=== PATIENT | male | born 1950 | race Caucasian/White ===

== ENCOUNTER 2017-04-05 06:04 | Observation (INO) | payer OTHER ==
[2017-04-05] VITALS (15 sets, daily range): BP systolic 108–136; BP diastolic 72–86; PULSE 81–88; TEMP 36.6–36.8; O2SAT 87–96; Ht 167.6 cm; Wt 74.8 kg
[~2017-04-05] VITALS: Ht 167.6 cm; Wt 74.8 kg
[~2017-04-05 06:04] MED LIST: ACT35 PO; CEFAZOLIN 1000MG/55 ML D5W 55 ML IV SCH; CLR10 PO; CLTP PO; FLVHFA110 INH; GABA-113 PO; GEMF600T3 PO; LACTATED RINGER'S 1000ML 1,000 ML IV SCH; LACTATED RINGER'S 1000ML IV SCH; LISI20TA PO; MOME50SP5; NABU500T3 PO; PARO1TAB27 PO; PARO1TAB29 PO; PRLSR20 PO; SIMV10TA2 PO; [UNRECOGNIZED DRUG - CODE] PO
[2017-04-05] MEDS ORDERED: ALBUT/IPRATROP 3MG/0.5MG NEB 3 ML VIAL INH ONE (07:15)
[2017-04-05] MEDS ORDERED: ONDANSETRON INJ 2 MG/ML 2 ML VIAL IV PRN (07:15)
[2017-04-05] MEDS ORDERED: ATROPINE SULFATE 0.1 MG/ML 5ML SYR IV PRN (07:15)
[2017-04-05] MEDS ORDERED: FENTANYL CITRATE INJ 50 MCG/1 ML 2 ML VIAL IV PRN (07:15)
[2017-04-05] MEDS ORDERED: EpHEDrine SULFATE INJ 50 MG/ML AMP IV PRN (07:15)
[2017-04-05] MEDS ORDERED: CARV12.5 PO (07:17)
[2017-04-05] MEDS ORDERED: ALBU2SYP9 INH (07:21)
[2017-04-05] MEDS ORDERED: LISI40TA PO (07:26)
[2017-04-05] MEDS ORDERED: TAMS0.4C38 PO (07:38)
[2017-04-05] MEDS ORDERED: LNX125 PO (07:38)
[2017-04-05] MEDS ORDERED: FINA5TAB PO (07:38)
[2017-04-05] MEDS ORDERED: COLC0.6T54 PO (07:38)
[2017-04-05] MEDS ORDERED: SPIR25TA PO (07:38)
[2017-04-05] MEDS ORDERED: WARF5TAB90 PO ×2 (07:38)
[2017-04-05] MEDS ORDERED: GLIP-197 PO (07:38)
[2017-04-05] MEDS ORDERED: OXYC-57 PO (07:38)
[2017-04-05] MEDS ORDERED: ATOR-22 PO (07:38)
[2017-04-05] MEDS ORDERED: ALBINS/ INH (07:38)
[2017-04-05] MEDS ORDERED: TORS20TA2 PO (07:38)
[2017-04-05] MEDS ORDERED: PRLSR20 PO ×2 (07:38)
[2017-04-05] MEDS ORDERED: SENN-65 PO (07:38)
[2017-04-05] MEDS ORDERED: NTRGSL/4 UT (07:38)
[2017-04-05 07:40] LABS: INR 2.1 (0.9-1.1); PARTIAL THROMBOPLASTIN RATIO 1.5; PROTHROMBIN TIME (PATIENT) 23.1 SECONDS (9.0-12.0)
[2017-04-05] MEDS ORDERED: PROPOFOL IV EMULSION 10 MG/ML 100 ML VIAL IV ONE (07:52)
--- NOTE | 2017-04-05 07:59 | History & Physical Bridge Note ---
H&P Re-Evaluation Bridge Note: I have examined the patient, reviewed the History & Physical and in the interval since the performance of the History & Physical I have noted the following changes of clinical significance: No changes noted
[2017-04-05] MEDS ORDERED: MIDAZOLAM HCL 1 MG/ML 2ML VIAL ONE (08:00)
[2017-04-05] MEDS ORDERED: BACITRACIN 50000 UNIT VIAL ONE (08:00)
[2017-04-05] MEDS ORDERED: LIDOCAINE HCL 1% 20 ML VIAL ONE (08:00)
[2017-04-05] MEDS ORDERED: BUPIVACAINE 0.5 % 5 MG/1 ML MPF 30ML VIAL ONE (08:00)
[2017-04-05] MEDS ORDERED: KETAMINE HCL INJ 50 MG/ML 10 ML VIAL ONE (08:00)
[2017-04-05] MEDS ORDERED: FENTANYL CITRATE INJ 50 MCG/1 ML 2 ML VIAL ONE (08:00)
[2017-04-05] MEDS ORDERED: PHENYLEPHRINE 100MCG/ML 5ML SYR ONE ×2 (08:48→10:29)
[2017-04-05] MEDS ORDERED: CEFAZOLIN SOD 1 GM VIAL ONE (09:18)
--- NOTE | 2017-04-05 11:03 | [facility] Post Operative Brief Note ---
Immediate Operative Summary Operative Date Apr 05, 2017. Pre-Operative Diagnosis nicm ef 20%, lbbb, chronic systolic hf nyha class ii, persistent atrial flutter Post-Operative Diagnosis same Procedure(s) Performed biventricular rate responsive icd with peripheral venogram Surgeon josé miguel cat Metals Analyst Surgeon(s) none Estimated Blood Loss 150cc Findings see official report Fluids (cc crystalloids) 300cc Specimens none Drains none Anesthesia 2mg versed, 100mcg fentantyl, 600mg propofol, 30mg ketamine Complication(s) None Disposition PCU
--- NOTE | 2017-04-05 11:10 | Discharge Instructions ---
Discharge Instructions Date of Service Apr 05, 2017. Admission Reason for Admission: Non Ischemic Cardiomyopathy Discharge Discharge Diagnosis / Problem: nicm ep 20% Discharge Goals Goal(s): Improve function Activity Recommendations Activity Limitations: as noted below Lifting Limitations: no more than 10 pounds (do not lift the left elbow over the left shoulder for 1 month do not lift more than 10 pounds with the left arm for 2 weeks) Exercise/Sports Limitations: as tolerated May Resume Sexual Activity: after two weeks Shower/Bathe: tomorrow Driving or Machine Use: resume 1 day after discharge . Instructions / Follow-Up Instructions / Follow-Up ACTIVITY RECOMMENDATIONS: * Do not raise affected arm over head for 4 weeks. SPECIAL CARE INSTRUCTIONS: * If bleeding occurs, apply direct pressure to area for 5 minutes. * Call your doctor if you have severe pain, fever, drainage or bleeding at site. * Keep dressing on and dry for 48 hours then remove. * Keep any scheduled doctor's appointment. * Implant Card - hand held device with website information given. SKIN IRRITATION: * You may experience some redness and/or swelling in the area where radiation was administered. If any skin irritation occurs, please contact your family physician. FOLLOW UP VISIT: Keep any scheduled doctor appointments. Current Hospital Diet Patient's current hospital diet: AHA Diet (Heart Healthy), Low Sodium Diet (2gm Na) Discharge Diet Recommended Diet: AHA Diet (Heart Healthy), Low Sodium Diet (2gm Na) Procedures Procedures Performed: biventricular rate responsive icd with peripheral venogram Pending Studies Studies pending at discharge: no Medical Emergencies . Who to Call and When: Medical Emergencies: If at any time you feel your situation is an emergency, please call 911 immediately. . Non-Emergent Contact Non-Emergency issues call your: [facility] . . "Provider Documentation" section prepared by Gema Ji. . VTE Core Measure Inpt VTE Proph given/why not?: Warfarin (Coumadin)
--- NOTE | 2017-04-05 11:13 | Discharge Summary ---
Discharge Summary Date of Service Apr 05, 2017. Discharge Summary Admission Date: 04/05/2017 Discharge Date: Apr 06, 2017 Discharge Disposition: Home Principal Diagnosis: nicm ef 20% Secondary Diagnoses/Problems: lbbb chronic systolic heart failure nyha class iii persistent atrial flutter on coumadin hld dm ckd stage ii copd chronic tobacco use hep c positive Procedures: biventricular rate responsive icd with peripheral venogram Medication Reconciliation Continued Medications: Albuterol Sulf (Ventolin) 2 Mg/5 Ml Syrp 2 PUFF INH Q4 PRN for SOB/Wheezing Albuterol Sulf (Proventil 0.083% 2.5MG/3ML) 2.5 Mg/3 Ml Nebu 2.5 MG INH QID PRN for SOB/Wheezing, EA Atorvastatin (Lipitor) 20 Mg Tab 1 TAB PO DAILY for 30 Days, #30 TAB 5 Refills Carvedilol (Coreg) 12.5 Mg Tab 3 TAB PO BID for 90 Days, #540 TAB 1 Refill Colchicine (Colchicine) 0.6 Mg Tab 0.6 MG PO DAILY, TAB Digoxin (Digoxin) 0.125 Mg Tab 1 TAB PO DAILY Finasteride (Proscar) 5 Mg Tab 1 TAB PO DAILY for 90 Days, #90 TAB 1 Refill Gabapentin (Neurontin) 300 Mg Cap 300 MG PO BID, 0 Refills Glipizide (Glipizide Er) 5 Mg Tab 1 TAB PO DAILY for 30 Days, #30 TAB 5 Refills Lisinopril (Zestril) 40 Mg Tab 40 MG PO, TAB Loratadine (Claritin) 10 Mg Tab 10 MG PO DAILY, 0 Refills Nitroglycerin (Nitrostat) 0.4 Mg Tab 0.4 MG UT PRN, BTL Omeprazole (Prilosec) 20 Mg Capcr 20 MG PO DAILY, CAP Oxycodone/Acetaminophen 5MG/325MG (Percocet 5MG/325MG) Tab 1 TAB PO TID PRN for Pain for 30 Days, #90 TAB PAIN Paroxetine (Paxil) 40 Mg Tab 60 MG PO DAILY, 0 Refills Senna/Docusate Sod (Senokot S) 1 Tab Tab 1 TAB PO PRN for Constipation, TAB Spironolactone (Aldactone) 25 Mg Tab 12.5 MG PO DAILY, TAB Tamsulosin Hcl (Flomax) 0.4 Mg Cap 0.4 MG PO DAILY, CAP Torsemide (Demadex) 20 Mg Tab 3 TABS PO DAILY for 90 Days, TAB 1 Refill Warfarin Sodium (Coumadin) 5 Mg Tab 5 MG PO 4XWK for 90 Days, TAB 1 Refill TAKE 1 TAB ON , TH, SAT , SUN Warfarin Sodium (Coumadin) 5 Mg Tab 7.5 MG PO 3XWK for 90 Days, TAB 1 Refill TAKE 1 1/2 TAB MON, WED, FRI Admission Information Physical Exam (per Admitting): aaox3, NAD Supple No JVD irregular S1/S2 +systolic murmur cta b/l no w/r/r soft nt no edema b/l le no focal deficits skin intact Hospital Course pt admitted for elective biv icd due to nicm, lbbb, chronic systolic hf. He underwent procedure without any complications. He was monitored overnight and discharged home. Total time spent on discharge = This includes examination of the patient, discharge planning, medication reconciliation, and communication with other providers. Discharge Instructions ACTIVITY RECOMMENDATIONS: * Do not raise affected arm over head for 4 weeks. SPECIAL CARE INSTRUCTIONS: * If bleeding occurs, apply direct pressure to area for 5 minutes. * Call your doctor if you have severe pain, fever, drainage or bleeding at site. * Keep dressing on and dry for 48 hours then remove. * Keep any scheduled doctor's appointment. * Implant Card - hand held device with website information given. SKIN IRRITATION: * You may experience some redness and/or swelling in the area where radiation was administered. If any skin irritation occurs, please contact your family physician. FOLLOW UP VISIT: Keep any scheduled doctor appointments.
[2017-04-05] MEDS ORDERED: OXYCODONE/ACETAMINOPHEN 5-325 TAB PO PRN (11:15)
[2017-04-05] MEDS ORDERED: DOCUSATE SODIUM/SENNA 50/8.6MG TAB PO PRN (11:15)
[2017-04-05] MEDS ORDERED: NITROGLYCERIN 0.4 MG SL PER TAB CHARGE UT SCH (11:15)
[2017-04-05] MEDS ORDERED: ALBUTEROL 0.083% NEBU SOLN 3 ML VIAL INH PRN (11:15)
--- NOTE | 2017-04-05 11:47 | Anesthesiology Progress Note ---
Anesthesia Post Op Note Date & Time Apr 05, 2017 at 11:46 Vital Signs Pain Intensity: 0 Vital Signs Past 12 Hours Date Time Temp Pulse Resp B/P (MAP) Pulse Ox O2 Delivery O2 Flow Rate FiO2 04/05/17 11:45 83 16 130/78 (95) 98 Room Air 84 04/05/17 11:30 83 16 114/80 (91) 98 Room Air 84 04/05/17 11:20 83 16 114/78 (90) 98 Room Air 04/05/17 11:20 84 18 123/77 (92) 96 Nasal Cannula 2 04/05/17 11:10 83 16 122/78 (93) 94 Room Air 04/05/17 11:00 80 16 117/73 (88) 95 Mask 4 04/05/17 07:45 85 16 96 Nasal Cannula 2.0 04/05/17 06:35 36.7 84 18 129/78 (95) 95 Room Air Notes Mental Status: alert / awake / arousable, participated in evaluation Pt Amnestic to Procedure: Yes Nausea / Vomiting: adequately controlled Pain: adequately controlled Airway Patency, RR, SpO2: stable & adequate BP & HR: stable & adequate Hydration State: stable & adequate Anesthetic Complications: no major complications apparent
[2017-04-05] MEDS: OXYCODONE/ACETAMINOPHEN 5-325 TAB PO PRN (13:55)
--- NOTE | 2017-04-05 14:34 | OPERATIVE REPORT ---
DATE OF OPERATION: 04/05/2017 PREOPERATIVE DIAGNOSES: Nonischemic cardiomyopathy, left bundle branch block, chronic systolic congestive heart failure, [place] Heart Association class 3, persistent atrial flutter on Coumadin. POSTOPERATIVE DIAGNOSIS: Same. PROCEDURE: Biventricular rate responsive implantable cardiac defibrillator under fluoroscopic guidance along with peripheral venogram. SURGEON: Dr. Gema Ji. GLOBAL RECRUITER: None. ANESTHESIA: Monitored anesthetic care given via anesthesiology. They gave a total of 2 mg of Versed, 100 mcg of fentanyl, 600 mg of propofol and 30 mg of ketamine, IV fluids 300 mL. BLOOD LOSS: 150 mL. CONTRAST: 18 mL. ANTIBIOTICS: 2 grams of Ancef. COMPLICATIONS: None. CONDITION: Stable. URINE OUTPUT: Not applicable. SPECIMENS: None. FINDINGS: See below. DRAINS: None. INDICATIONS: This is a 66-year-old gentleman who has a past medical history for nonischemic cardiomyopathy, ejection fraction 20%, persistent atrial flutter on Coumadin, minimal nonobstructive coronary artery disease by catheterization in July 2016, chronic systolic heart failure, [place] Heart Association class 3, left bundle branch block, diabetes, COPD, chronic kidney disease stage II, chronic tobacco use, hep C. Due to his ischemic cardiomyopathy, heart failure, synchrony on echo and bundle branch he was recommended biventricular implantable cardiac defibrillator. CONSENT: Consent was obtained prior to the patient going into the electrophysiology lab. The patient was informed of the risks, benefits, alternatives to the procedure. Risks include but not limited to sudden cardiac , cardiac arrhythmias, cerebrovascular accident, myocardial infarction, injury to the blood vessels, chamber of the heart, lungs, bleeding and infection. The patient understood these risks and agreed to undergo the procedure as planned. Informed consent was obtained. DESCRIPTION OF THE PROCEDURE: The patient was brought into the electrophysiology lab in a fasting state. He was connected to continuous cardiac monitoring. A timeout was performed to ensure patient's identity and procedure correctly. The patient received prophylactic antibiotics prior to incision. He was prepped and draped over the left infraclavicular space in normal surgical standard fashion. [place] precautions were maintained throughout the procedure. Monitored anesthetic care was given throughout the procedure for patient's comfort level via anesthesiology supervision. Ten mL of 1% lidocaine, bupivacaine mixture were given in the left deltopectoral groove. Incision was made in left deltopectoral groove. Blunt dissection was performed down to identify the cephalic vein. The cephalic vein was isolated using 0 silk ties. Then a peripheral venogram using 10 mL of IV contrast diluted in 10 mL of saline followed by 20 mL flush was used to identify the axillary vein. Axillary venous access was obtained with an axillary stick without any problems. The guidewire was inserted without any problems. Then I went back to the cephalic vein and I nicked it with an 11 blade and a guidewire was inserted without any resistance. An 8-Somali sheath was inserted over the guidewire and then the dilator was removed and a second guidewire was inserted through the 8-Somali sheath to allow for retained venous access. The sheath was removed and a 9.5-Somali sheath was inserted over the guidewire without any resistance. The guidewire and dilator were removed. The right ventricular defibrillator lead was then advanced into the right ventricle and positioned into the right ventricular apex under fluoroscopic guidance. There was adequate pacing and sensing thresholds and no diaphragmatic stimulation with high output pacing. The 9-1/2 Somali sheath was peeled away and the lead was fixated to pectoralis muscle using 0 silk suture. An 8-Somali sheath was inserted over the retained guidewire through the cephalic vein. There was some resistance so then I used a coated 8 Somali sheath that was a little bit slippier and allowed for easier glide through. The dilator and guidewire were removed and the right atrial lead was advanced into the right atrium and positioned into the right atrial appendage under fluoroscopic guidance. There was adequate sensing of the flutter waves and impedance. There was no testing of thresholds since the patient was in flutter. The sheath was peeled away and lead was fixated to the pectoralis muscle using 0 silk suture. A 9.5-Somali sheath was then inserted over the guidewire through the axillary vein in stick. The guidewire and dilator were removed and an MPX Medtronic outer sheath Attain Command coronary sinus outer sheath was advanced into the right atrium under fluoroscopic guidance over a guidewire. The guidewire and dilator were removed. Then diagnostic EP Decapolar catheter was used to cannulate the coronary sinus. The MPX outer sheath was then advanced over the diagnostic EP catheter into the coronary sinus. Then a balloon was inserted through the Command to do a venogram of the coronary sinus. There were 2 ideal branches, the branch that was a little higher up and went a little bit more lateral was easily cannulated with a Whisper wire. The Attain Command MPX was then advanced a little bit over the Whisper wire up to the ostium of this branch. Then the pacing lead was tracked over the Whisper wire under fluoroscopic guidance out into the branch. There was adequate thresholds and impedance. There was no diaphragmatic pacing at 5 volts, but there was at 10 volts. The Whisper wire was then removed and a stylet was placed through the lead for more support. The MPX Attain Command sheath was pulled back out of the coronary sinus, then was split under fluoroscopic guidance. The 9.5-Somali outer short sheath was then peeled and split. The lead was fixated to the pectoralis muscle using 0 silk suture. There was some backbleeding from the cephalic venous site so I did use a pursestring around the venous site using a 2-[address] needle. Then a defibrillator pocket was created using blunt dissection over the pectoralis muscle within the pectoralis fascia. The pocket was flushed with copious amounts of bacitracin saline wash and inspected for hemostasis. The defibrillator generator was then attached to the leads making sure that the pins were in appropriate position, passed the set screws and the set screws were all tightened. The defibrillator was then placed in the pocket, making sure that the leads were lying flat beneath the device. Kaylee stat was placed in the pocket as patient is on Coumadin. The incision was closed in a 3-layer fashion using a 2-0 Vicryl interrupted suture followed by 3-0 Vicryl interrupted suture followed by a 4-0 Monocryl running stitch and Dermabond was applied followed then by a pressure dressing. EQUIPMENT: 1. Defibrillator is a Medtronic Hublishedia MRI quad CRTD Surescan GTTQ9II, serial #[id number]. 2. Right atrial lead Medtronic 5076-52 cm, serial #[id number]. 3. Right ventricular lead Medtronic 6935M-62 cm, serial #[id number]. 4. Left ventricular lead, Medtronic 4598-88 cm, serial #[id number]. INTRAOPERATIVE TESTIN. Right atrial lead flutter waves are 1.4 millivolts, impedance 450 ohms, no threshold testing as patient was in flutter. 2. Right ventricular lead: R-wave 4.9 millivolts, impedance 480 ohms, threshold 0.4 volts at 0.6 milliamps. 3. Left ventricular lead programmed bipolar LV 2-3, impedance 459 ohms, threshold 0.8 volts at 1.8 milliamps. FINAL PARAMETERS THROUGH THE DEVICE: 1. Right atrial lead flutter waves 1.6 millivolts, impedance 454 ohms, no threshold testing as patient was in atrial flutter. 2. Right ventricular lead: R-wave 6.8 millivolts, impedance 437 ohms, threshold 0.5 volts at 0.4 milliseconds. 3. Left ventricular lead programmed bipolar LV2-LV3, threshold was 1 volt at 0.4 milliseconds, impedance 460 ohms. FINAL PARAMETERS: 1. DDDR 70/130. Right atrial and right amplitude is 3.5 volts, pulse width 0.4 milliseconds, sensitivity 0.15 millivolts. 2. Right ventricular amplitude 3.5 volts, pulse width 0.4 milliseconds, sensitivity 0.3 millivolts. 3. Left ventricular amplitude 4 volts, pulse width 0.4 milliseconds. 4. VF zone 200 beats per minute with 30/40 detection intervals and a VT zone of 167 beats per minute with 20 detection intervals. IMPRESSION: Successful implantation of biventricular implantable cardiac defibrillator under fluoroscopic guidance along with peripheral venogram due to nonischemic cardiomyopathy, chronic systolic heart failure, and left bundle branch block. PLAN: Monitor patient overnight, 12-lead ECG, chest x-ray. He is not allowed to lift the left elbow over the left shoulder for 1 month. He cannot lift more than 10 pounds with the left arm for 2 weeks. We will keep the pressure dressing on probably for 2 days. He can continue his other home medications with new addition to his Coumadin. He probably will not get the maximum effective of his biventricular device until after flutter ablation which I plan on hopefully doing about a month from now. He will follow up in our [place] office in 7-10 days for device and wound check. I will see him in about a month's time to arrange for flutter ablation. I attest to the content of the Intraoperative Record and any orders documented therein. Any exception s are noted below.
[2017-04-05] MEDS ORDERED: IV FLUIDS COMPLETED PRN (14:45)
[2017-04-05] MEDS ORDERED: WARFARIN SOD 7.5 MG TAB PO SCH (16:00)
[2017-04-05] MEDS: CARVEDILOL 12.5 MG TAB PO SCH (20:13)
[2017-04-05] MEDS: GABAPENTIN 300 MG CAP PO SCH (20:14)
[2017-04-06] VITALS (7 sets, daily range): BP systolic 121–153; BP diastolic 76–88; PULSE 85–86; TEMP 36.3–36.6; O2SAT 91–97
[2017-04-06] MEDS: OXYCODONE/ACETAMINOPHEN 5-325 TAB PO PRN ×2 (05:15→10:56)
--- NOTE | 2017-04-06 08:07 | DIAGNOSTIC IMAGING REPORT ---
CHEST 2 VIEWS ROUTINE CLINICAL HISTORY: 66 years-old Male presenting with EXACT TIME ORDERED Evaluate for pneumothorax and lead placement. TECHNIQUE: PA and lateral views of the chest were obtained. COMPARISON: 11/09/2006. FINDINGS: Left implanted cardiac defibrillator with leads to the right atrium, right ventricular apex, and coronary sinus noted. Cardiac mediastinal silhouette normal. Bibasilar reticular and hazy opacities. Heterogeneous radiolucency in the upper lobes could suggest underlying emphysema. Small right pleural effusion. No pneumothorax. Multiple deformities of ribs consistent with old rib fractures. Left shoulder arthroplasty. Upper abdomen normal. IMPRESSION: 1. Left implanted cardiac defibrillator placement without evidence of pneumothorax. 2. Mild pulmonary edema suspected. 3. Small right pleural effusion. 4. Suspected underlying emphysema. Electronically signed by: Aime Taylor M.D. 04/06/2017 8:06 AM Dictated Date/Time: 04/06/2017 8:04 AM
--- NOTE | 2017-04-06 08:20 | Cardiology Follow-Up ---
Subjective Subjective Date of Service: Apr 06, 2017. Pt evaluation today including: conversation w/ patient, physical exam, lab review, review of studies Pain: minimal Review of Systems Constitutional: No fatigue Respiratory: + shortness of breath Cardiac: No chest pain, No edema, No palpitations Abdomen: No nausea, No diarrhea Objective Vital Signs Last Vital Signs Documentation Date Time Temp Pulse Resp B/P (MAP) Pulse Ox O2 Delivery O2 Flow Rate FiO2 04/06/17 07:42 36.6 85 20 153/88 (109) 96 2.0 04/06/17 04:00 Nasal Cannula Physical Exam: General Appearance: WD/WN, no apparent distress Eyes: bilateral eyes PERRL, bilateral eyes EOMI Neck: supple Respiratory/Chest: lungs clear, normal breath sounds Cardiovascular: regular rate, rhythm, no edema, no JVD, no murmur Abdomen: soft Extremities: no pedal edema Neurologic/Psychiatric: alert, oriented x 3 Skin: warm/dry (left pectoral incision intact no hematom and mild ecchymosis), no rash Assessment and Plan Impression: 1. ICM EF 20% s/p BiV ICD 04/05/2017 2. LBBB 3. Chronic systolic HF, NYHA Class III 4. persistent atrial flutter on coumadin 5. CAD minimal disease by cath 07/2016 6. HLD 7. CKD stage II 8. Back pain Plan: -Ok for discharge home today -Continue home medications -Pt is on chronic pain program through [facility] however he is not due for refill until tomorrow; so I will give him 5 pills for today given the recent surgery -Pt not allowed to lift his left elbow over the left shoulder for 1 month and not to lift more than 10 pounds for 2 weeks with the left arm -Can shower tomorrow -Device and wound check next week -F/u with me in 1 month to begin arranging for flutter ablation Discharge planning: home Medications: Medications Administered Medications (Trade) Dose Ordered Sig/Leonardo Route Start Time Stop Time Status Last Admin Dose Admin Cefazolin Sodium 55 ml @ 100 mls/hr PREOP IV 04/05/17 06:00 04/05/17 18:00 DC 04/05/17 08:10 100 MLS/HR Lactated Ringer's 1,000 ml @ 15 mls/hr Q24H IV 04/05/17 06:00 04/05/17 15:08 DC 04/05/17 07:11 15 MLS/HR Albuterol/ Ipratropium (Duoneb) 3 ml NOW ONCE INH 04/05/17 07:15 04/05/17 07:25 DC 04/05/17 07:45 3 ML Oxycodone/ Acetaminophen (Percocet 5-325mg Tab) 1 tab for pain scale 4-6 2 t... Q6H PRN PO 04/05/17 11:15 04/19/17 11:14 04/06/17 05:15 1 TAB Carvedilol (Coreg Tab) 37.5 mg BID PO 04/05/17 21:00 05/05/17 20:59 04/05/17 20:13 37.5 MG Gabapentin (Neurontin Cap) 300 mg BID PO 04/05/17 21:00 05/05/17 20:59 04/05/17 20:14 300 MG Lab Results: Telemetry: BiV paced underlying flutter ECG: BiV paced underlying flutter ICD Interrogation: 88% biv paced overnight RA: flutter waves 1.8mV; 380 ohms RV: 7.6mV; 437ohms; 0.25V@0.4ms RV 45 ohms coil: LV: 494ohms; 1.0V@0.4ms CXR: No PTX leads in position
[2017-04-06 08:26] LABS: INR 1.4 (0.9-1.1); PROTHROMBIN TIME (PATIENT) 14.8 SECONDS (9.0-12.0)
[2017-04-06] MEDS: GABAPENTIN 300 MG CAP PO SCH (08:53)
[2017-04-06] MEDS: CARVEDILOL 12.5 MG TAB PO SCH (08:53)
[2017-04-06] MEDS ORDERED: PAROXETINE 20 MG TAB PO SCH (09:00)
[2017-04-06] MEDS ORDERED: LORATADINE 10 MG TAB PO SCH (09:00)
[2017-04-06] MEDS ORDERED: ATORVASTATIN 20 MG TAB PO SCH (09:00)
[2017-04-06] MEDS ORDERED: SPIRONOLACTONE 25 MG TAB PO SCH (09:00)
[2017-04-06] MEDS ORDERED: PANTOprazole SOD 40 MG TAB PO SCH (09:00)
[2017-04-06] MEDS ORDERED: FINASTERIDE 5 MG TAB PO SCH (09:00)
[2017-04-06] MEDS ORDERED: LISINOPRIL 40 MG TAB PO SCH (09:00)
[2017-04-06] MEDS ORDERED: TORSEMIDE 20 MG TAB PO SCH (09:00)
[2017-04-06] MEDS ORDERED: COLCHICINE 0.6 MG TAB PO SCH (09:00)
[2017-04-06] MEDS ORDERED: TAMSULOSIN HCL 0.4 MG CAP PO SCH (09:00)
--- NOTE | 2017-04-06 11:15 | Anesthesiology Progress Note ---
Anesthesia Post Op Note Date & Time Apr 06, 2017 at 11:15 Vital Signs Pain Intensity: 0.0 Vital Signs Past 12 Hours Date Time Temp Pulse Resp B/P (MAP) Pulse Ox O2 Delivery O2 Flow Rate FiO2 04/06/17 10:20 36.6 85 20 96 Nasal Cannula 04/06/17 08:00 96 Nasal Cannula 2.0 04/06/17 07:42 36.6 85 20 153/88 (109) 96 2.0 04/06/17 04:03 36.4 86 16 149/85 (106) 96 2.0 04/06/17 04:00 95 Nasal Cannula 2.0 04/06/17 00:59 95 Nasal Cannula 2.0 04/06/17 00:01 36.3 85 22 123/76 (92) 97 Nasal Cannula 2.0 Notes Mental Status: alert / awake / arousable, participated in evaluation Pt Amnestic to Procedure: Yes Nausea / Vomiting: adequately controlled Pain: adequately controlled Airway Patency, RR, SpO2: stable & adequate BP & HR: stable & adequate Hydration State: stable & adequate Anesthetic Complications: no major complications apparent
[2017-04-06] MEDS ORDERED: DIGOXIN 0.125 MG TAB PO SCH (16:00)
[2017-04-27] MEDS ORDERED: NRN800 PO (14:23)
[2017-04-27] MEDS ORDERED: PARO30TA3 PO (14:23)
[2017-04-27] MEDS ORDERED: AMOX875T3 PO (14:23)
== END 2017-04-06 11:37 | disposition home or self-care (01) ==
LOC: C.ACU 06:04 → C.2T 11:06 → ENRESERV 13:22
PROVIDERS: ADMIT Internal Medicine; ATTEND Internal Medicine
DX: I42.9 Cardiomyopathy, unspecified (principal); I48.92 Unspecified atrial flutter; I25.10 Atherosclerotic heart disease of native coronary artery without angina pectoris; I50.22 Chronic systolic (congestive) heart failure; E11.9 Type 2 diabetes mellitus without complications; I44.7 Left bundle-branch block, unspecified; N18.2 Chronic kidney disease, stage 2 (mild); J44.9 Chronic obstructive pulmonary disease, unspecified; J45.909 Unspecified asthma, uncomplicated; F41.1 Generalized anxiety disorder; F17.200 Nicotine dependence, unspecified, uncomplicated; K21.9 Gastro-esophageal reflux disease without esophagitis; C90.00 Multiple myeloma not having achieved remission; I13.0 Hypertensive heart and chronic kidney disease with heart failure and stage 1 through stage 4 chronic kidney disease, or unspecified chronic kidney disease; Z79.01 Long term (current) use of anticoagulants; Z79.899 Other long term (current) drug therapy; Z83.3 Family history of diabetes mellitus; Z82.49 Family history of ischemic heart disease and other diseases of the circulatory system

== ENCOUNTER 2017-05-10 06:24 | Observation (INO) | payer OTHER ==
[2017-04-27 14:05] VITALS: BMI 26.0
[~2017-05-10] VITALS: Ht 167.6 cm; Wt 71.1 kg
[2017-05-10] VITALS (8 sets, daily range): BP systolic 108–134; BP diastolic 71–87; PULSE 72–88; TEMP 36.4–36.5; O2SAT 91–96; Ht 167.6 cm; Wt 71.1 kg
[~2017-05-10 06:24] MED LIST changes: -ACT35 PO; +ALBINS/ INH; +ALBU2SYP9 INH; +AMOX875T3 PO; +ATOR-22 PO; +CARV12.5 PO; -CEFAZOLIN 1000MG/55 ML D5W 55 ML IV SCH; -CLTP PO; +COLC0.6T54 PO; +FINA5TAB PO; -FLVHFA110 INH; -GABA-113 PO; -GEMF600T3 PO; +GLIP-197 PO; -LACTATED RINGER'S 1000ML 1,000 ML IV SCH; -LACTATED RINGER'S 1000ML IV SCH; -LISI20TA PO; +LISI40TA PO; +LNX125 PO; -MOME50SP5; -NABU500T3 PO; +NRN800 PO; +NTRGSL/4 UT; +OXYC-57 PO; -PARO1TAB27 PO; -PARO1TAB29 PO; +PARO30TA3 PO; +PROPOFOL IV EMULSION 10 MG/ML 100 ML VIAL IV ONE; +SENN-65 PO; -SIMV10TA2 PO; +SPIR25TA PO; +TAMS0.4C38 PO; +TORS20TA2 PO; +WARF5TAB90 PO; -[UNRECOGNIZED DRUG - CODE] PO
[2017-05-10 07:28] LABS: INR 1.9 (0.9-1.1); PARTIAL THROMBOPLASTIN RATIO 1.5
[2017-05-10] MEDS ORDERED: MIDAZOLAM HCL 1 MG/ML 2ML VIAL ONE (07:51)
[2017-05-10] MEDS ORDERED: FENTANYL CITRATE INJ 50 MCG/1 ML 2 ML VIAL ONE (07:51)
[2017-05-10] MEDS ORDERED: EpHEDrine SULFATE 50MG/5ML SYR ONE (07:51)
[2017-05-10] MEDS ORDERED: PHENYLEPHRINE 100MCG/ML 5ML SYR ONE (07:51)
[2017-05-10] MEDS ORDERED: LIDOCAINE HCL 2% 2 ML VIAL (20MG/ML) ONE (07:51)
[2017-05-10] MEDS ORDERED: PROPOFOL IV EMULSION 10 MG/ML 20 ML VIAL IV ONE (07:51)
[2017-05-10] MEDS ORDERED: ONDANSETRON INJ 2 MG/ML 2 ML VIAL IV PRN (08:30)
[2017-05-10] MEDS ORDERED: FENTANYL CITRATE INJ 50 MCG/1 ML 2 ML VIAL IV PRN (08:30)
[2017-05-10] MEDS ORDERED: ATROPINE SULFATE 0.1 MG/ML 5ML SYR IV PRN (08:30)
[2017-05-10] MEDS ORDERED: HEPARIN SOD (PORCINE) 1000 UNIT/ML 10 ML VIAL ONE (08:48)
[2017-05-10] MEDS ORDERED: PHENYLEPHRINE HCL INJ 10 MG/ML VIAL ONE (09:19)
[2017-05-10] MEDS ORDERED: EpHEDrine SULFATE INJ 50 MG/ML AMP ONE ×2 (09:49→10:17)
--- NOTE | 2017-05-10 11:12 | [facility] Post Operative Brief Note ---
Immediate Operative Summary Operative Date May 10, 2017. Pre-Operative Diagnosis persistent atrial flutter Post-Operative Diagnosis same, bidirectional block accross the CTI Procedure(s) Performed EPS. 3d mapping activation mapping of RA flutter, radiofrequency ablation of cavo-tricuspid isthmus Surgeon josé miguel cat Embedded Systems Software Engineer Surgeon(s) none Estimated Blood Loss <5cc Findings see official report Fluids (cc crystalloids) 900cc Specimens none Drains none Anesthesia 4mg versed, 100mcg fentatnyl, 800mg propofol Complication(s) None Disposition PCU
--- NOTE | 2017-05-10 11:14 | Discharge Instructions ---
Discharge Instructions Date of Service May 10, 2017. Admission Reason for Admission: A-Flutter Discharge Discharge Diagnosis / Problem: persistent atrial flutter Discharge Goals Goal(s): Improve function Activity Recommendations Activity Limitations: as noted below Lifting Limitations: no more than 10 pounds (no heavy lifting or squatting for 1 week) Shower/Bathe: tomorrow Driving or Machine Use: resume 1 day after discharge . Instructions / Follow-Up Instructions / Follow-Up ACTIVITY RECOMMENDATIONS: It is common to feel weak and fatigue for a few days. * Do not drive or operate any motorized equipment for the next 1 day. * Limit stair usage (2 or 3 trips a day only) for the next 7 days. * Do not lift anything heavier than 10 pounds for the next 7 days. * Do not engage in vigorous exercise or any sports for the next five days. * You may shower the day after your procedure, but do not immerse the area for three days. Cleanse the site gently with soap and water. SPECIAL CARE INSTRUCTIONS: * You may replace the pressure dressing or band-aid the morning after the procedure. * After your procedure, it is normal to have a small bruise or small lump at the site. Examine your site daily for any change in the bruise or lump, redness, swelling, drainage or numbness. Notify your doctor if any change. BLEEDING: * If there is a small amount of bleeding at the site, lie down and apply firm pressure with a clean cloth for ten minutes. When the bleeding stops, lie quietly keeping the procedure limb straight for six hours. Notify your doctor as soon as possible. * If the bleeding does not stop after ten minutes or if there is a large amount of bleeding or spurting, call 911 immediately. Continue to lie down and hold firm pressure until help arrives. SKIN IRRITATION: * You may experience some redness and/or swelling in the area where radiation was administered. If any skin irritation occurs, please contact your family physician. FOLLOW UP VISIT: Keep any scheduled doctor appointments. Current Hospital Diet Patient's current hospital diet: AHA Diet (Heart Healthy), Low Sodium Diet (2gm Na), Diabetes Type 2 Diet Discharge Diet Recommended Diet: AHA Diet (Heart Healthy), Low Sodium Diet (2gm Na), Diabetes Type 2 Diet Procedures Procedures Performed: EPS. 3d mapping activation mapping of RA flutter, radiofrequency ablation of cavo-tricuspid isthmus Pending Studies Studies pending at discharge: no Medical Emergencies . Who to Call and When: Medical Emergencies: If at any time you feel your situation is an emergency, please call 911 immediately. . Non-Emergent Contact Non-Emergency issues call your: Completion Manager . . "Provider Documentation" section prepared by Gema Ji. . VTE Core Measure Inpt VTE Proph given/why not?: Warfarin (Coumadin)
[2017-05-10] MEDS ORDERED: ALBUTEROL 0.083% NEBU SOLN 3 ML VIAL INH PRN (11:15)
[2017-05-10] MEDS ORDERED: LORATADINE 10 MG TAB PO PRN (11:15)
[2017-05-10] MEDS ORDERED: NITROGLYCERIN 0.4 MG SL PER TAB CHARGE UT SCH (11:15)
[2017-05-10] MEDS ORDERED: DOCUSATE SODIUM/SENNA 50/8.6MG TAB PO PRN (11:15)
[2017-05-10] MEDS ORDERED: ACETAMINOPHEN 325 MG TAB PO PRN (11:15)
--- NOTE | 2017-05-10 11:17 | Discharge Summary ---
Discharge Summary Date of Service May 10, 2017. Discharge Summary Admission Date: 05/10/2017 Discharge Date: May 11, 2017 Discharge Disposition: Home Principal Diagnosis: persistent atrial flutter s/p ablation Secondary Diagnoses/Problems: nicm EF 20% h/o BiV ICD 03/2017 CAD mild non-obstructive disease by cath in 07/2016 HTN Chronic systolic HF, NYHA Class III DM COPD Procedures: Atrial flutter radiofrequency ablation of cavo-tricuspid isthmus, 3d activation mapping of right atrial flutter, EPS, BiV ICD interrogation and reprogramming Medication Reconciliation Continued Medications: Albuterol Sulf (Ventolin) 2 Mg/5 Ml Syrp 2 PUFF INH Q4 PRN for SOB/Wheezing Albuterol Sulf (Proventil 0.083% 2.5MG/3ML) 2.5 Mg/3 Ml Nebu 2.5 MG INH QID PRN for SOB/Wheezing, EA Atorvastatin (Lipitor) 20 Mg Tab 20 MG PO QAM Carvedilol (Coreg) 12.5 Mg Tab 3 TAB PO BID for 90 Days Colchicine (Colchicine) 0.6 Mg Tab 0.6 MG PO QAM, TAB Digoxin (Digoxin) 0.125 Mg Tab 1 TAB PO QPM Finasteride (Proscar) 5 Mg Tab 5 MG PO QAM Gabapentin (Gabapentin) 800 Mg Tab 800 MG PO TID Glipizide (Glipizide Er) 5 Mg Tab 5 MG PO QPM Lisinopril (Zestril) 40 Mg Tab 40 MG PO QAM, TAB Loratadine (Claritin) 10 Mg Tab 10 MG PO DAILY PRN for Seasonal Allergies, 0 Refills Nitroglycerin (Nitrostat) 0.4 Mg Tab 0.4 MG UT PRN, BTL Omeprazole (Prilosec) 20 Mg Capcr 20 MG PO QPM, CAP Oxycodone/Acetaminophen 5MG/325MG (Percocet 5MG/325MG) Tab 1 TAB PO TID PRN for Pain for 30 Days, #90 TAB PAIN Paroxetine HCl (Paroxetine) 30 Mg Tab 60 MG PO QAM Senna/Docusate Sod (Senokot S) 1 Tab Tab 1 TAB PO PRN for Constipation, TAB Spironolactone (Aldactone) 25 Mg Tab 12.5 MG PO QAM, TAB Tamsulosin Hcl (Flomax) 0.4 Mg Cap 0.4 MG PO QAM, CAP Torsemide (Demadex) 20 Mg Tab 3 TABS PO QAM Warfarin Sodium (Coumadin) 5 Mg Tab 5 MG PO DAILY Admission Information Physical Exam (per Admitting): aaox3, NAD Supple, No JVD Irregular S1/S2, no murmur CTA b/l No w/r/r Soft NT/ND No edema b/l LE No focal deficits Skin intact Hospital Course Pt was admitted for elective atrial flutter ablation. He underwent procedure without any complications. Monitored overnight and discharged home following morning in stable condition Total time spent on discharge = 30 minutes This includes examination of the patient, discharge planning, medication reconciliation, and communication with other providers. Discharge Instructions ACTIVITY RECOMMENDATIONS: It is common to feel weak and fatigue for a few days. * Do not drive or operate any motorized equipment for the next 1 day * Limit stair usage (2 or 3 trips a day only) for the next 7 days. * Do not lift anything heavier than 10 pounds for the next 7 days. * Do not engage in vigorous exercise or any sports for the next five days. * You may shower the day after your procedure, but do not immerse the area for three days. Cleanse the site gently with soap and water. SPECIAL CARE INSTRUCTIONS: * You may replace the pressure dressing or band-aid the morning after the procedure. * After your procedure, it is normal to have a small bruise or small lump at the site. Examine your site daily for any change in the bruise or lump, redness, swelling, drainage or numbness. Notify your doctor if any change. BLEEDING: * If there is a small amount of bleeding at the site, lie down and apply firm pressure with a clean cloth for ten minutes. When the bleeding stops, lie quietly keeping the procedure limb straight for six hours. Notify your doctor as soon as possible. * If the bleeding does not stop after ten minutes or if there is a large amount of bleeding or spurting, call 911 immediately. Continue to lie down and hold firm pressure until help arrives. SKIN IRRITATION: * You may experience some redness and/or swelling in the area where radiation was administered. If any skin irritation occurs, please contact your family physician. FOLLOW UP VISIT: Keep any scheduled doctor appointments.
[2017-05-10] MEDS ORDERED: IV FLUIDS COMPLETED PRN (12:45)
[2017-05-10] MEDS ORDERED: NURSING VERBAL MED ORDER ONE (13:00)
--- NOTE | 2017-05-10 13:11 | OPERATIVE REPORT ---
DATE OF OPERATION: 05/10/2017 PREOPERATIVE DIAGNOSIS: Persistent atrial flutter. POSTOPERATIVE DIAGNOSIS: Same; bidirectional caval block across the cavotricuspid isthmus. PROCEDURE PERFORMED: Electrophysiology study, radiofrequency ablation of the cavotricuspid isthmus for right atrial flutter, 3D activation mapping of the right atrial flutter, biventricular implantable cardiac defibrillator interrogation inch reprogramming. SURGEON: Gema Ji DO NEEDLE PUNCH MACHINE OPERATOR: None. ANESTHESIA: Monitored anesthetic care administered via anesthesiology, total of 4 mg of Versed, 100 mcg of fentanyl and 800 mg of Propofol. IV FLUIDS: 900 mL. BLOOD LOSS: Less than 5 mL. COMPLICATIONS: None. CONDITION: Stable. URINE OUTPUT: Not applicable. SPECIMENS: None. FINDINGS: See below. DRAINS: None. INDICATIONS FOR PROCEDURE: This is a 66-year-old gentleman who has a past medical history of nonischemic cardiomyopathy, ejection fraction 20%. He underwent a biventricular ICD in March 2017, persistent atrial flutter, on Coumadin; coronary artery disease, mild nonobstructive disease by cath in July 2016, hypertension, chronic systolic heart failure, [place] Heart Association class 3, diabetes, COPD, hepatitis B. Due to the persistent atrial flutter, he was recommended flutter ablation. CONSENT: Consent was obtained prior to the patient going into the electrophysiology lab. The patient was informed of risks, benefits and alternatives to the procedure. Risks include but not limited to sudden cardiac ; cardiac arrhythmias; cerebrovascular accident; myocardial infarction; injury to the blood vessels, chamber of the heart with the creek electrical system where he would be dependent on his biventricular ICD lead dislodgement, bleeding and infection. The patient understood these risks and agreed to the procedure as planned. Informed consent was obtained. DESCRIPTION OF THE PROCEDURE: The patient was brought into the electrophysiology lab in a fasting state. He was connected to continuous recovery assistant. A timeout was performed to ensure patient's identity and procedure correctly. The patient was prepped and draped over the bilateral groins in normal surgical standard fashion. Monitored conscious sedation was given throughout the procedure for patient's comfort level. Ingomar precautions were maintained throughout the procedure. Monitored anesthetic care was given throughout the procedure by anesthesiology under their supervision. A 10 mL of 1% lidocaine were given in the bilateral groins for local anesthesia. Using the modified Seldinger technique under ultrasound guidance using a micropuncture kit, venous access was obtained in the following manner. Left femoral vein ultimately had 6-Trinidadian sheath followed by a Dewayne quadripolar catheter positioned into the right ventricular apex. The 7-Trinidadian sheath followed by a 20 pole Halo catheter positioned around the right atrium. The right femoral groins initially had a 6-Trinidadian sheath, which then swapped out for an SRO sheath followed by a ThermoCool DF catheter 4 mm [employer]ense ablation catheter. The patient was in atrial flutter at the beginning of the case, tachycardia cycle length was 256 milliseconds. We 3D activation mapping of the atrial flutter confirming that it was right atrial and involving the cavotricuspid isthmus. With the ablation catheter placed on the CTI and pacing and entraining the flutter, the PPI interval was 282, PPI minus tachycardia cycle length was 26 milliseconds confirming that the CTI was part of the flutter cycle circuit. We then set up to do a cavotricuspid isthmus ablation. We passed a catheter from the tricuspid valve into the cavotricuspid isthmus region and started giving series of radiofrequency gonzalez about a minute in duration and longer than a minute in duration at 40 storey, the patient did have some vagal activities, so we did lower it down to 30 storey. There was a little bit of the ridge. We dragged it down to the IVC giving radiofrequency gonzalez. At one point, the patient did convert out of the atrial flutter to a junctional rhythm where he had some atrial standstill for some time. We were biventricular pacing and eventually the atrium did come back. With Halo distal on the lateral portion line and the ablation catheter on the septal portion line pacing lateral to septal, the measurement was 90 milliseconds showing that we still did not have block. We continued to do more radiofrequency ablations while in sinus rhythm where I focused more in that area where there was a ridge. We then checked again and we had bidirectional block, so we started our post-ablation waiting period and electrophysiology studies as follows: IA interval 224 milliseconds. QRS 194 milliseconds, QT 566 milliseconds, sinus cycle length 754 milliseconds, AH 148 milliseconds, HV 66 milliseconds. Of note, during our monitor period, I placed the ablation catheter into the high right ventricular apex and I placed a Dewayne catheter over the His bundle region to get these signals. The AV Wenckebach was 600 milliseconds, the AV node ERP was 800/480 and 700/420. Atrial ERP was 800/270 and 700/240. Right ventricular ERP was 600/384 and 100/290. The septum with the ablation catheter positioned septal to the line, the pacing septal measuring the Halo distal lateral to the line was 150 milliseconds and pacing lateral to Halo distal to the ablation which is septal measured 146 milliseconds and this was 30 minutes post-ablation, we deemed that we still had bidirectional block and ____. All the catheters were then pulled from the heart under fluoroscopic guidance and the picture was used to confirm that the biventricular pacing leads were still in the same place. The sheaths were pulled and manual compression was held to establish hemostasis. PRE-ABLATION BIVENTRICULAR DEVICE INTERROGATION: 1. Right atrial flutter waves 1.8 millivolts, impedance 437 ohms, no threshold testing as patient was in flutter. 2. Right ventricular: R-wave 9.9 millivolts, impedance 399 ohms, threshold 0.75 volts at 0.4 milliseconds. 3. Left ventricle: Impedance 551 ohms, threshold 1 volt at 0.4 milliseconds. POST-ABLATION BIVENTRICULAR ICD INTERROGATION AND REPROGRAMMIN. Right atrial: P-wave waves 1.8 millivolts, impedance 437 ohms, threshold 0.75 volts at 0.4 milliseconds. 2. Right ventricular R-wave 9.9 millivolts, impedance 437 ohms, threshold 0.75 volts at 0.4 milliseconds. 3. Left ventricular impedance 513 ohms, threshold 0.5 volts at 0.4 milliseconds. 4. The RV coil was 58 ohms. 5. The device was reprogrammed to DDD with a base rate of 70. IMPRESSION: 1. Successful cavotricuspid isthmus radiofrequency ablation for persistent atrial flutter with bidirectional block across the cavotricuspid isthmus line. 2. Sinus node dysfunction with atrial standstill and junctional rhythm for a brief time with the conversion out of the atrial flutter. 3. Atrioventricular agusto disease and left bundle branch block. PLAN: Monitor patient overnight, 12-lead ECG. He is not to do any heavy lifting or squatting for 1 week. He should follow up in our [place] office in 1 month. He can continue his home medications and he is going to need weekly INRs for the next 3 months. I attest to the content of the Intraoperative Record and any orders documented therein. Any exception s are noted below.
[2017-05-10] MEDS: GABAPENTIN 800 MG TAB PO SCH ×2 (13:20→21:05)
[2017-05-10] MEDS ORDERED: NICOTINE 21 MG/24 HR TDSY EXT ONE (13:30)
--- NOTE | 2017-05-10 14:07 | Anesthesiology Progress Note ---
Anesthesia Post Op Note Date & Time May 10, 2017 at 14:07 Vital Signs Pain Intensity: 0 Vital Signs Past 12 Hours Date Time Temp Pulse Resp B/P (MAP) Pulse Ox O2 Delivery O2 Flow Rate FiO2 05/10/17 13:15 75 18 128/78 (95) 94 Nasal Cannula 2.0 05/10/17 12:45 73 18 119/78 (92) 92 Nasal Cannula 2.0 05/10/17 12:16 72 18 108/72 (84) 92 Nasal Cannula 2.0 05/10/17 12:03 Nasal Cannula 2.0 05/10/17 11:50 80 18 110/70 (83) 93 Room Air 4 05/10/17 11:45 36.5 83 20 110/71 (84) 91 Nasal Cannula 2.0 05/10/17 11:40 80 18 110/71 (84) 95 Nasal Cannula 2 05/10/17 11:30 80 18 118/71 (87) 96 Nasal Cannula 4 05/10/17 07:07 36.5 81 22 120/75 (90) 92 Room Air 05/10/17 06:57 36.5 81 22 120/75 (90) 92 Room Air Notes Mental Status: alert / awake / arousable, participated in evaluation Pt Amnestic to Procedure: Yes Nausea / Vomiting: adequately controlled Pain: adequately controlled Airway Patency, RR, SpO2: stable & adequate BP & HR: stable & adequate Hydration State: stable & adequate Anesthetic Complications: no major complications apparent
[2017-05-10] MEDS ORDERED: INFLUENZA VACCINE HIGH DOSE 65+ 0.5 ML SYR IM. ONE (14:30)
[2017-05-10] MEDS ORDERED: INFLUENZA ADMINISTRATION CHARGE ONE (14:30)
[2017-05-10] MEDS: OXYCODONE/ACETAMINOPHEN 5-325 TAB PO PRN ×2 (15:48→21:01)
[2017-05-10] MEDS ORDERED: WARFARIN SOD 5 MG TAB PO SCH (16:00)
[2017-05-10] MEDS ORDERED: PANTOprazole SOD 40 MG TAB PO SCH (21:00)
[2017-05-10] MEDS ORDERED: DIGOXIN 0.125 MG TAB PO SCH (21:00)
[2017-05-10] MEDS: CARVEDILOL 12.5 MG TAB PO SCH (21:03)
[2017-05-11] VITALS (7 sets, daily range): BP systolic 117–135; BP diastolic 76–85; PULSE 78–80; TEMP 36.4–36.5; O2SAT 84–99
[2017-05-11] MEDS: OXYCODONE/ACETAMINOPHEN 5-325 TAB PO PRN (05:06)
[2017-05-11 06:52] LABS: PROTHROMBIN TIME (PATIENT) 21.5 SECONDS (9.0-12.0)
[2017-05-11] MEDS ORDERED: ATORVASTATIN 20 MG TAB PO SCH (09:00)
[2017-05-11] MEDS ORDERED: COLCHICINE 0.6 MG TAB PO SCH (09:00)
[2017-05-11] MEDS ORDERED: SPIRONOLACTONE 25 MG TAB PO SCH (09:00)
[2017-05-11] MEDS ORDERED: NICOTINE 21 MG/24 HR TDSY EXT SCH (09:00)
[2017-05-11] MEDS ORDERED: LISINOPRIL 40 MG TAB PO SCH (09:00)
[2017-05-11] MEDS ORDERED: FINASTERIDE 5 MG TAB PO SCH (09:00)
[2017-05-11] MEDS ORDERED: TORSEMIDE 20 MG TAB PO SCH (09:00)
[2017-05-11] MEDS ORDERED: PAROXETINE 30 MG TAB PO SCH (09:00)
[2017-05-11] MEDS ORDERED: TAMSULOSIN HCL 0.4 MG CAP PO SCH (09:00)
[2017-05-11] MEDS: CARVEDILOL 12.5 MG TAB PO SCH (09:28)
[2017-05-11] MEDS: GABAPENTIN 800 MG TAB PO SCH (09:28)
--- NOTE | 2017-05-11 12:27 | Cardiology Follow-Up ---
Subjective General Date of Service: May 11, 2017. Chief Complaint: F/U post atrial flutter ablation Pt evaluation today including: conversation w/ patient, conversation w/ family , physical exam, chart review, lab review, review of studies, review of inpatient medication list History of Present Illness Late entry. Seen and examined at 9:20 AM. Family at bedside. No complaints. Anxious for discharge. Denies chest pain, palpitations, dyspnea, or groin issues. Allergies Coded Allergies: Lorazepam (Verified Allergy, Intermediate, "went bizerk", 05/10/17) Social History Smoking Status: Current Every Day Smoker Hx Tobacco Use In Past Year?: Yes (cigarettes) Hx Alcohol Use - Type And Amou: No Hx Substance Use - Type And Am: No Physical Exam Vital Signs Last Vital Signs Documentation Date Time Temp Pulse Resp B/P (MAP) Pulse Ox O2 Delivery O2 Flow Rate FiO2 05/11/17 10:39 36.4 80 16 94 Room Air 05/11/17 08:00 2.0 05/11/17 07:44 135/81 (99) 05/11/17 00:09 Physical Exam Constitutional: Level of Distress: chronically ill Ambulation: ambulating normally Psychiatric: Mental Status: active & alert Orientation: to time, to place, to person Memory: recent memory normal, remote memory normal Head: normocephalic, atraumatic Eyes: Pupils: PERRLA Neck: pertinent finding (Normal JVP) Lungs: Respiratory effort: no dyspnea Auscultation: no wheezing, no rales/crackles, no rhonchi, deminished air movement, decreased breath sounds Cardiovascular: Heart Auscultation: RRR, no rubs, II/ THOMAS Peripheral Pulses: Dorsalis Pedis Pulse: normal on the right, decreased on the left (medial ankle deformity) Abdomen: Bowel Sounds: normal Inspection & Palpation: soft, pertinent finding (Bilateral inguinal sites are clean, dry, and intact. No hematoma. No active bleeding. ) Extremities: no cyanosis, no edema, no clubbing Neurologic: Cranial Nerves: grossly intact Assessment and Plan Assessment and Plan Stable for discharge. Follow-up with Dr. Ji as planned/scheduled. CARDIOLOGY ATTENDING ADDENDUM: The patient was seen and personally examined. Agree with Elias Ortega PA-C's findings and plans as documented above. Laboratory Results Last 24 Hours Test 05/10/17 16:40 05/10/17 20:44 05/11/17 05:49 05/11/17 06:24 Bedside Glucose 93 mg/dl 124 mg/dl 77 mg/dl Prothrombin Time 21.5 SECONDS Prothromb Time International Ratio 2.0
== END 2017-05-11 11:38 | disposition home or self-care (01) ==
LOC: C.ACU 06:24 → ENRESERV 10:38 → C.2T 11:10
PROVIDERS: ADMIT Internal Medicine; ATTEND Internal Medicine
DX: I48.92 Unspecified atrial flutter (principal); I25.10 Atherosclerotic heart disease of native coronary artery without angina pectoris; I50.22 Chronic systolic (congestive) heart failure; E11.9 Type 2 diabetes mellitus without complications; J44.9 Chronic obstructive pulmonary disease, unspecified; I11.0 Hypertensive heart disease with heart failure; I48.91 Unspecified atrial fibrillation; K21.9 Gastro-esophageal reflux disease without esophagitis; N18.3 Chronic kidney disease, stage 3 (moderate); J45.909 Unspecified asthma, uncomplicated; B19.20 Unspecified viral hepatitis C without hepatic coma; F17.200 Nicotine dependence, unspecified, uncomplicated; Z79.899 Other long term (current) drug therapy; Z79.01 Long term (current) use of anticoagulants; Z68.26 Body mass index [BMI] 26.0-26.9, adult; Z98.890 Other specified postprocedural states; Z96.698 Presence of other orthopedic joint implants; Z96.641 Presence of right artificial hip joint; Z83.3 Family history of diabetes mellitus; Z82.49 Family history of ischemic heart disease and other diseases of the circulatory system